=== PATIENT | female | born 1985 | race Caucasian/White ===

== ENCOUNTER 2019-05-04 08:58 | Emergency (ER) | payer MEDICAID ==
[~2019-05-04] VITALS: Ht 172.7 cm; Wt 127.0 kg
[2019-05-04 09:11] VITALS: BP_SYST 157
--- NOTE | 2019-05-04 09:13 | NUR ---
Placed in room 6 . Placed on ekg monitor, blood pressure machine and pulse oximeter. To gown for exam. Side rails up. Report given to Dre HER.
--- NOTE | 2019-05-04 09:19 | NUR ---
Patient is awake, alert, and oriented x4. Patient reports shap non-radiating chest pain 7/10 since last night. Patient reports feeling nauseous, denies vomiting and diarrhea.
--- NOTE | 2019-05-04 09:35 | NUR ---
ER Dr. Ring at bedside examining patient.
[2019-05-04] MEDS ORDERED: MAG HYDROX/AL HYDROX/SIMETH 30 ML, DICYCLOMINE HCL 20 MG, LIDOCAINE VISCOUS 2% 15ML (PO... PO ONE ×3 (09:45)
[2019-05-04 09:53] LABS: BASOPHILS # (AUTO) 0.1 K/uL (0.0-0.2); BASOPHILS % (AUTO) 0.8 % (0.0-2.0); EOSINOPHILS # (AUTO) 0.2 K/uL (0.0-0.4); HEMATOCRIT 37.5 % (36-48); HEMOGLOBIN 12.2 g/dL (12.0-16.0); LYMPHOCYTES # (AUTO) 1.3 K/uL (1.0-5.5); LYMPHOCYTES % (AUTO) 15.9 % (20.5-51.5); MEAN CORPUSCULAR HEMOGLOBIN 25 pg (27-31); MEAN CORPUSCULAR HGB CONC 33 % (32-36); MEAN CORPUSCULAR VOLUME 76 fL (79.0-98.0); MONOCYTES # (AUTO) 0.3 K/uL (0.0-1.0); MONOCYTES % (AUTO) 3.3 % (1.7-9.3); NEUTROPHILS # (AUTO) 6.1 K/uL (1.8-7.7); PLATELET COUNT (AUTO) 176 K/uL (130-430); RED BLOOD CELL COUNT(AUTO) 4.96 MIL/uL (4.2-6.2); RED CELL DISTRIBUTION WIDTH 16.4 % (9.0-15.0); WHITE BLOOD COUNT (AUTO) 7.9 K/uL (4.8-10.8)
[2019-05-04 09:55] LABS: BILIRUBIN,URINE NEGATIVE (NEGATIVE); BLOOD, URINE 2+ (NEGATIVE); CLARITY/URINE CLEAR (CLEAR); COLOR,URINE YELLOW (YELLOW); GLUCOSE,URINE NEGATIVE (NEGATIVE); KETONES,URINE NEGATIVE (NEGATIVE); LEUKOCYTE ESTERASE ,URINE NEGATIVE (NEGATIVE); NITRITE, URINE NEGATIVE (NEGATIVE); PH,URINE 5.5 (5.0-8.0); PROTEIN URINE TRACE (NEGATIVE); UROBILINOGEN,URINE 0.2 (0.2-1.0)
[2019-05-04 10:06] LABS: CREATININE 0.72 mg/dL (0.55-1.30); POTASSIUM 3.6 mmol/L (3.5-5.1)
[2019-05-04 10:07] LABS: PROTHROMBIN TIME 9.9 SECS (9.5-12.5)
[2019-05-04 10:10] LABS: ALBUMIN 3.5 g/dL (3.4-4.8); TOTAL BILIRUBIN 0.3 mg/dL (0.0-1.0)
[2019-05-04 10:31] LABS: BACTERIA,URINE FEW /HPF (None Seen); MUCUS,URINE 1+ /LPF (None Seen); RBC,URINE 0-3 /HPF (0-3); WBC,URINE 0-3 /HPF (0-3)
--- NOTE | 2019-05-04 10:50 | NUR ---
Patient given written and verbal discharge instructions and verbalizes understanding. ER MD discussed with patient the results and treatment provided. Patient in stable condition. ID arm band removed. IV catheter removed intact and dressing applied, no active bleeding. Rx of motrin given. Patient educated on pain management and to follow up with PMD. Pain Scale 0/10. Opportunity for questions provided and answered. Medication side effect fact sheet provided.
[2019-05-04 10:51] VITALS: BP_SYST 111
== END 2019-05-04 10:51 | disposition home or self-care (01) ==
LOC: SED 08:58
DX: R07.89 Other chest pain (principal); Z90.49 Acquired absence of other specified parts of digestive tract; Z86.79 Personal history of other diseases of the circulatory system; Z91.041 Radiographic dye allergy status
CPT/HCPCS: 36415; 71045; 80053; 81000; 83880; 84484; 84702; 85025; 85610; 99284; J2001

== ENCOUNTER 2019-05-09 19:17 | Inpatient (IN) | payer MEDICAID ==
[~2019-05-09] VITALS: Ht 172.7 cm; Wt 132.0 kg
[2019-05-09 19:28] VITALS: BP_SYST 144
--- NOTE | 2019-05-09 19:28 | NUR ---
Patient to ER bed 06 to gown for evaluation. Side rails up. Report given to Luann HER.
--- NOTE | 2019-05-09 19:29 | NUR ---
Patient came into ED after coming 2 days ago to the ER. Patient was diagnosed with pnumonia and was given a prescription of doxycicline. pt states that she vomits within an hour of taking the medication everytime. Pt states that the vomiting does not persist, its only after taking the medication. Patient reports that she has lingering nausea. Denies diarrhea. Pt is still having symptoms from the pnumonia, including coughing, headache, and sob when coughing. Pt A&Ox4. will continue to monitor.
--- NOTE | 2019-05-09 19:37 | NUR ---
ER Dr. Vicente at bedside examining patient.
[2019-05-09] MEDS ORDERED: NACL 0.9% 1,000 ML IV ONE (19:50)
[2019-05-09] MEDS ORDERED: ONDANSETRON HCL 4 MG/2 ML VIAL IVP ONE (20:00)
[2019-05-09 20:08] LABS: HEMOGLOBIN 10.8 g/dL (12.0-16.0); PLATELET COUNT (AUTO) 200 K/uL (130-430); RED CELL DISTRIBUTION WIDTH 16.7 % (9.0-15.0)
[2019-05-09 20:20] LABS: BILIRUBIN,URINE 1+ (NEGATIVE); CLARITY/URINE CLEAR (CLEAR); COLOR,URINE YELLOW (YELLOW); GLUCOSE,URINE NEGATIVE (NEGATIVE); KETONES,URINE NEGATIVE (NEGATIVE); LEUKOCYTE ESTERASE ,URINE NEGATIVE (NEGATIVE); NITRITE, URINE NEGATIVE (NEGATIVE); PROTEIN URINE TRACE (NEGATIVE)
[2019-05-09 20:29] LABS: ALANINE AMINOTRANSFERASE 32 U/L (12-78); AMYLASE 26 U/L (0-100); ANION GAP 9 (5-15); ASPARTATE AMINOTRANSFERASE 16 U/L (10-37); BASOPHILS % (AUTO) 0.7 % (0.0-2.0); CHLORIDE 99 mmol/L (98-107); CREATININE 0.78 mg/dL (0.55-1.30); EOSINOPHILS # (AUTO) 0.1 K/uL (0.0-0.4); EOSINOPHILS % (AUTO) 1.7 % (0.0-4.0); GLUCOSE 111 mg/dL (70-99); HEMATOCRIT 33.7 % (36-48); LIPASE 92 U/L (73-393); LYMPHOCYTES # (AUTO) 1.3 K/uL (1.0-5.5); MEAN CORPUSCULAR HEMOGLOBIN 24 pg (27-31); MEAN CORPUSCULAR HGB CONC 32 % (32-36); MEAN CORPUSCULAR VOLUME 76 fL (79.0-98.0); MONOCYTES # (AUTO) 0.4 K/uL (0.0-1.0); MONOCYTES % (AUTO) 5.4 % (1.7-9.3); NEUTROPHILS # (AUTO) 5.3 K/uL (1.8-7.7); NEUTROPHILS % (AUTO) 74.2 % (40.0-70.0); POTASSIUM 3.6 mmol/L (3.5-5.1); RED BLOOD CELL COUNT(AUTO) 4.47 MIL/uL (4.2-6.2); SODIUM SERUM 136 mmol/L (136-145); TOTAL BILIRUBIN 0.7 mg/dL (0.0-1.0); UREA NITROGEN, BLOOD 10 mg/dL (8-21); WHITE BLOOD COUNT (AUTO) 7.1 K/uL (4.8-10.8)
[2019-05-09 20:34] LABS: BLOOD, URINE TRACE (NEGATIVE)
--- NOTE | 2019-05-09 20:45 | NUR ---
Medication reconciliation completed with information provided by PATIENT. Any prior medication reconciliation on file was reviewed and corrected.
[2019-05-09 20:52] LABS: PROTHROMBIN TIME 10.2 SECS (9.5-12.5)
[2019-05-09] MEDS ORDERED: VENL75CA PO (20:54)
--- NOTE | 2019-05-09 21:25 | NUR ---
Patient's D-Dimer returned Elevated. Dr. Vicente to order CTA Chest. Chest Xray Cancelled.
[2019-05-09 21:28] LABS: BACTERIA,URINE FEW /HPF (None Seen); MUCUS,URINE 3+ /LPF (None Seen); RBC,URINE 0-3 /HPF (0-3); WBC,URINE 0-3 /HPF (0-3)
--- NOTE | 2019-05-09 21:32 | NUR ---
Patient is allergic to IV Iodine. Reports that it causes hives. Requesting Benadryl prior to CTA. Dr. Vicente to cancel CTA and order VQ Scan.
--- NOTE | 2019-05-09 21:37 | NUR ---
Aria mota in ED - 05/10/19 at 0107 by [email or web address] Patient's D-Dimer returned Elevated. Dr. Vicente to order CTA Chest.
--- NOTE | 2019-05-09 22:12 | NUR ---
Patient pending possible admission for Elevated D-Dimer. Awaiting Dr. Nix's call back.
--- NOTE | 2019-05-09 22:15 | NUR ---
Requesting Chest Xray for patient from MD for patient's cough. No order received from MD.
--- NOTE | 2019-05-09 22:56 | NUR ---
Dr. Nix called for admission. Dr. Nix refused admission would like patient to have VQ scan in the ED.
--- NOTE | 2019-05-09 23:45 | NUR ---
Patient is resting comfortably in bed. Friend is at bedside.
--- NOTE | 2019-05-10 00:32 | NUR ---
Patient updated on admission status. Informed that she will receive VQ Scan in ED. Patient resting comfortably in bed. Voiced no complaints.
--- NOTE | 2019-05-10 00:55 | NUR ---
Patient is sitting comfortably in bed. No s/s of distress.
--- NOTE | 2019-05-10 02:46 | NUR ---
Patient resting quietly. No acute distress noted. Chest rise and fall noted. Vital signs within normal range.
--- NOTE | 2019-05-10 02:58 | NUR ---
report given to TAINA Beasley for continuation of care.
--- NOTE | 2019-05-10 03:00 | NUR ---
PT resting comfortably in bed. No signs of acute distress. Will cont. to monitor.
--- NOTE | 2019-05-10 04:00 | NUR ---
PT resting comfortably in bed. No signs of acute distress. Will cont. to monitor.
--- NOTE | 2019-05-10 05:43 | NUR ---
Pt went to VQ scan per MD Dr. Nix order. Tolerated well. Will cont. to monitor.
--- NOTE | 2019-05-10 06:34 | NUR ---
PT returned from VQ scan via wheelchair. Tolerated well. Will cont. to monitor.
[2019-05-10] MEDS ORDERED: cefTRIAXone 1 GM IVPB PREMIX 50 ML IV ONE (07:15)
[2019-05-10] MEDS ORDERED: MORPHINE 4 MG/ML INJ. SYRINGE IVP ONE (07:15)
--- NOTE | 2019-05-10 07:20 | NUR ---
Pt received from night RN using SBAR. Pt resting in bed with eyes open. Pt connected to the in room monitor. No signs of acute distress at this time.
--- NOTE | 2019-05-10 08:30 | NUR ---
ER Dr. Gar at bedside examining patient.
[2019-05-10] MEDS ORDERED: DIPHENHYDRAMINE INJ 50 MG/ML VIAL IVP ONE (09:00)
[2019-05-10] MEDS ORDERED: IOHEXOL 350 mgI/mL, 150 ML INFUS..BTL IV ONE (09:17)
--- NOTE | 2019-05-10 10:09 | NUR ---
Pt denies any allergic reaction to CT with contrast. Denies any hives or itchiness. Benadryl given, prior to exam, pt is tolerating.
[2019-05-10] MEDS ORDERED: VENL37.510 PO (10:15)
--- NOTE | 2019-05-10 10:24 | NUR ---
Report Telephone report given to Arron. Med rec, belongings list, code status and summary report printed.
--- NOTE | 2019-05-10 11:00 | NUR ---
ADMISSION NOTE Received patient from ER via luisa, received report from Jennifer HER. Patient admitted with diagnosis of PNA. Patient oriented to hospital routine, call light, toileting and safety-patient verbalized understanding.
--- NOTE | 2019-05-10 11:04 | NUR ---
ID consult called: for Dr. Yousif, regarding pna, ordered by Suha Mendoza, spoke with Amaya.
[2019-05-10 11:06] VITALS: BP_SYST 103
--- NOTE | 2019-05-10 11:36 | NUR ---
Dr Jarquin made aware of the consult.
--- NOTE | 2019-05-10 12:19 | NUR ---
seen by dr spence
[2019-05-10] MEDS: cefTRIAXone 1 GM in D5W 50 ML IV SCH ×2 (12:29→12:41)
[2019-05-10] MEDS ORDERED: cefTRIAXone 1 GM IVPB PREMIX 50 ML IV SCH (12:30)
[2019-05-10] MEDS ORDERED: HYDROcodone/ACETAMIN 10-325 MG TAB PO PRN (12:30)
[2019-05-10] MEDS ORDERED: LORazepam 2 MG/ML VIAL IVP PRN (12:30)
[2019-05-10] MEDS ORDERED: ACETAMINOPHEN 325 MG TABLET PO PRN (12:30)
[2019-05-10] MEDS ORDERED: HYDROcodone/ACETAMIN 5-325 MG TAB (NORCO/ VICODIN) PO PRN (12:30)
[2019-05-10] MEDS ORDERED: ONDANSETRON HCL 4 MG/2 ML VIAL IVP PRN (12:30)
--- NOTE | 2019-05-10 12:35 | NUR ---
Hematology consult called: for Dr. Marx, regarding elevated D dimer, ordered by Suha Mendoza, spoke with Yarely.
[2019-05-10] MEDS: AZITHROMYCIN 500 MG in NS 250 ML IV SCH (12:50)
--- NOTE | 2019-05-10 13:00 | NUR ---
PATIENT CRYING DUE TO NOBODY WILL TAKE CARE OF THE KIDS AT HOME.
[2019-05-10] MEDS ORDERED: NORMAL SALINE 5 ML DISP.SYRIN IVF SCH (14:00)
[2019-05-10] MEDS: NORMAL SALINE 5 ML DISP.SYRIN IVF SCH ×2 (14:00→20:53)
--- NOTE | 2019-05-10 14:30 | NUR ---
STILL CRYING AT THIS TIME. MADE COMFORTABLE.
--- NOTE | 2019-05-10 15:00 | NUR ---
WENT TO THE BATHROOM TWICE
[2019-05-10 15:25] VITALS: BP_SYST 113
--- NOTE | 2019-05-10 16:00 | NUR ---
WENT TO SLEEP. BOTH EYES CLOSED.
--- NOTE | 2019-05-10 18:06 | NUR ---
PATIENT EATING DINNER. NO COMPLAINED MADE SO FAR.
--- NOTE | 2019-05-10 18:43 | NUR ---
patient stable. no complained made so far.
--- NOTE | 2019-05-10 18:44 | NUR ---
closing notes: patient watching tv. breathing even and unlabored. abdomen soft and non distended. still has iv access on the left ac #18. saline lock. all needs are met and attended. maintained fall and safety measures. bed in low position, locked and alarmed. call lights within reach. endorsed to incoming nurse.
--- NOTE | 2019-05-10 19:35 | NUR ---
Initial Note Received patient asleep but arousable. Awake, alert and oriented. No SOB noted. Denies any pain or n/v at this time. VS taken and is stable. Saline lock. Skin intact and no peripheral edema noted. Ambulates to the bathroom and back in bed with steady gait. Care and monitoring will be provided per protocol. Call light within reach. Bed alarm off per patient's request. Bed at lowest position at all times. Needs attended. Repositions self. Kept warm and comfortable.
[2019-05-10 20:00] VITALS: BP_SYST 99
--- NOTE | 2019-05-10 20:50 | NUR ---
RN Note Visitor at the bedside. Patient on her phone at this time. No meds scheduled tonight. Medicated for anxiety/insomnia per patient's request. Will continue to monitor. Advised to use call light if she feels weak or dizzy. Call light within reach. Needs attended.
--- NOTE | 2019-05-10 22:00 | NUR ---
RN Note Patient awake and alert, watching TV. No complaints at this time. Needs attended.
[2019-05-11] VITALS: BP_SYST 90
--- NOTE | 2019-05-11 | NUR ---
RN Note Patient sleeping at this time. No SOB or grimacing noted.
--- NOTE | 2019-05-11 03:00 | NUR ---
RN Note Asleep, moves occasionally. No distress noted.
[2019-05-11] MEDS: NORMAL SALINE 5 ML DISP.SYRIN IVF SCH ×2 (05:40→13:14)
[2019-05-11 05:43] LABS: BASOPHILS % (AUTO) 0.6 % (0.0-2.0); EOSINOPHILS # (AUTO) 0.2 K/uL (0.0-0.4); EOSINOPHILS % (AUTO) 4.3 % (0.0-4.0); HEMATOCRIT 28.7 % (36-48); HEMOGLOBIN 9.4 g/dL (12.0-16.0); LYMPHOCYTES # (AUTO) 1.1 K/uL (1.0-5.5); LYMPHOCYTES % (AUTO) 19.3 % (20.5-51.5); MEAN CORPUSCULAR HEMOGLOBIN 25 pg (27-31); MEAN CORPUSCULAR HGB CONC 33 % (32-36); MEAN CORPUSCULAR VOLUME 75 fL (79.0-98.0); MONOCYTES # (AUTO) 0.3 K/uL (0.0-1.0); MONOCYTES % (AUTO) 6.2 % (1.7-9.3); NEUTROPHILS # (AUTO) 3.8 K/uL (1.8-7.7); NEUTROPHILS % (AUTO) 69.6 % (40.0-70.0); PLATELET COUNT (AUTO) 160 K/uL (130-430); RED BLOOD CELL COUNT(AUTO) 3.81 MIL/uL (4.2-6.2); RED CELL DISTRIBUTION WIDTH 16.6 % (9.0-15.0); WHITE BLOOD COUNT (AUTO) 5.5 K/uL (4.8-10.8)
[2019-05-11 06:00] LABS: CALCIUM 8.8 mg/dL (8.4-11.0); CREATININE 0.72 mg/dL (0.55-1.30); POTASSIUM 3.4 mmol/L (3.5-5.1)
--- NOTE | 2019-05-11 06:09 | NUR ---
End Note Afebrile. VS stable. No complain of pain, SOB or n/v throughout the night. Medicated for insomnia/restlessness once all night. Ambulates well with steady gait. Needs sputum specimen. Saline lock flushed as scheduled. AM labs today. Will endorse to AM RN re IV antibiotic in the fridge that supposed to be given at 0800 today but not scheduled in [facility]. Will leave message to the pharmacy. Care and monitoring provided per protocol. Call light within reach. Bed alarm off per patient's request. Bed at lowest position at all times. Needs attended. Kept warm and comfortable.
[2019-05-11 06:50] LABS: C-REACTIVE PROTEIN QUANT 12.8 mg/dL (0-0.5)
--- NOTE | 2019-05-11 07:36 | NUR ---
Opening Note received bedside SBAR report from assembler 1st shift RN, patient resting in bed, respirations even and unlabored on room air, no acute distress noted, educated patient on use of call light and asked to call for assistance, patient verbalized understanding, call light in reach, educated patient on use of bed alarm for patient safety, refusing bed alarm, bed in low and locked position.
[2019-05-11 08:00] VITALS: BP_SYST 100
[2019-05-11] MEDS ORDERED: cefTRIAXone 1 GM in D5W 50 ML IV SCH (08:00)
[2019-05-11 08:07] LABS: ERYTHROCYTE SEDIMENTATION RATE 91 MM/HR (0-20)
[2019-05-11] MEDS ORDERED: Effexor 37.5 MG TAB PO SCH (09:00)
--- NOTE | 2019-05-11 09:44 | NUR ---
RN Rounds patient resting in bed, patient denies any pain or shortness of breath, no acute distress noted, no additional needs at this time.
[2019-05-11] MEDS ORDERED: ENOXAPARIN SODIUM 40 MG/0.4 ML SYRINGE SUBCUT ONE (10:30)
--- NOTE | 2019-05-11 11:42 | NUR ---
Physician Rounds Dr. Jarquin at bedside examining patient.
[2019-05-11 12:00] VITALS: BP_SYST 133
[2019-05-11] MEDS: AZITHROMYCIN 500 MG in NS 250 ML IV SCH (13:14)
--- NOTE | 2019-05-11 14:18 | NUR ---
RN Rounds patient resting in bed, no acute distress noted, respirations even and unlabored on room air, patient denies any pain or shortness of breath, no acute distress noted.
--- NOTE | 2019-05-11 15:26 | NUR ---
AMA Patient does not wish to proceed with medical care recommended by Dr. Angela Orozco, patient given information related to possible complications, up to and including , which could occur as a result of leaving hospital at this time, patient verbalizes understanding of risks involved leaving against medical advice, patient has signed AMA form, IV catheter removed, catheter intact, no bleeding, hospital ID band removed, all belongings sent with patient, patient refusing wheelchair to parking lot, security notified of patient leaving AM. Addendum: 05/11/19 at 1928 by Francisca Britton RN paged Dr. Angela Orozco to notify him that patient left AMA, awaiting call back.
[2019-05-12] MEDS ORDERED: ENOXAPARIN SODIUM 40 MG/0.4 ML SYRINGE SUBCUT SCH (09:00)
[2019-05-12 19:06] LABS: MYCOPLASMA PNEUMONIAE IgM <770 U/mL (0-769)
== END 2019-05-11 15:26 | disposition left against medical advice (07) | DRG 139 ==
LOC: SED 19:17 → SMU 05-10 10:08
PROVIDERS: ADMIT Preventive Medicine Preventive Medicine/Occupational Environmental Medicine; ATTEND Preventive Medicine Preventive Medicine/Occupational Environmental Medicine
DX: J18.9 Pneumonia, unspecified organism (principal); I47.1 Supraventricular tachycardia; D64.9 Anemia, unspecified; F32.9 Major depressive disorder, single episode, unspecified; D50.9 Iron deficiency anemia, unspecified; E03.9 Hypothyroidism, unspecified; E66.9 Obesity, unspecified; F41.9 Anxiety disorder, unspecified; R07.89 Other chest pain; R73.9 Hyperglycemia, unspecified; Z98.84 Bariatric surgery status; Z98.891 History of uterine scar from previous surgery; Z91.041 Radiographic dye allergy status; Z79.899 Other long term (current) drug therapy; Z68.44 Body mass index [BMI] 60.0-69.9, adult
CPT/HCPCS: 36415; 71045; 71275; 78579; 78580-TC; 80048; 80053; 81000-TC; 82150-TC; 82550-TC; 83605; 83690-TC; 83880; 84484; 85025; 85379; 85610-TC; 85651-TC; 85730-TC; 86140; 86635; 86738; 87040-TC; 87449; 93005; 96361; 96365; 96375; 99285; A9539; A9540; J0456; J0696; J1200; J1650; J2060; J2270; J2405; J7030; J7050; J7060; Q9967

== ENCOUNTER 2019-05-16 18:48 | Emergency (ER) | payer MEDICAID ==
[~2019-05-16] VITALS: Ht 172.7 cm; Wt 128.4 kg
[~2019-05-16 18:48] MED LIST: VENL37.510 PO; VENL75CA PO
[2019-05-16 18:53] VITALS: BP_SYST 146
--- NOTE | 2019-05-16 19:00 | NUR ---
Patient to ER bed 06 to gown for evaluation. Side rails up.
--- NOTE | 2019-05-16 19:02 | NUR ---
Patient AOx4, ambulatory, presents to ER with complaint of non-productive cough x9 days. Patient states she was admitted to [facility] on 05/07/19 for PNA and discharged on 05/11/19. Patient states she has been taking the prescribed Doxycicline x4 days now and is here for a follow-up visit since she does not have a PCP. No other symptoms or complaints. Patient states, "I feel better but the cough is still there".
--- NOTE | 2019-05-16 19:05 | NUR ---
YURI Brennan at bedside for medical evaluation.
[2019-05-16 20:30] VITALS: BP_SYST 138
--- NOTE | 2019-05-16 20:30 | NUR ---
Patient given written and verbal discharge instructions and verbalizes understanding. ER MD discussed with patient the results and treatment provided. Patient in stable condition. ID arm band removed. Rx of Promethazine with Codeine, Tylenol ES, Doxycycline, and Albuterol Ihn given. Patient educated on pain management and to follow up with PMD. Pain Scale 0/10. Opportunity for questions provided and answered. Medication side effect fact sheet provided.
== END 2019-05-16 20:30 | disposition home or self-care (01) ==
LOC: SED 18:48
DX: J18.9 Pneumonia, unspecified organism (principal); R03.0 Elevated blood-pressure reading, without diagnosis of hypertension; F32.9 Major depressive disorder, single episode, unspecified; Z90.49 Acquired absence of other specified parts of digestive tract; Z86.79 Personal history of other diseases of the circulatory system; Z79.899 Other long term (current) drug therapy; Z91.041 Radiographic dye allergy status
CPT/HCPCS: 71046-TC; 81025; 99283

== ENCOUNTER 2019-09-06 16:46 | Emergency (ER) | payer BC, MEDICAID ==
[~2019-09-06] VITALS: Ht 172.7 cm; Wt 128.4 kg
[2019-09-06 16:53] VITALS: BP_SYST 158
[2019-09-06 17:23] LABS: BILIRUBIN,URINE 1+ (NEGATIVE); BLOOD, URINE NEGATIVE (NEGATIVE); CLARITY/URINE CLEAR (CLEAR); COLOR,URINE YELLOW (YELLOW); GLUCOSE,URINE NEGATIVE (NEGATIVE); KETONES,URINE NEGATIVE (NEGATIVE); LEUKOCYTE ESTERASE ,URINE NEGATIVE (NEGATIVE); NITRITE, URINE NEGATIVE (NEGATIVE); PROTEIN URINE NEGATIVE (NEGATIVE); UROBILINOGEN,URINE 0.2 (0.2-1.0)
[2019-09-06] MEDS: KETOROLAC TROMETHAMINE 30 MG VIAL IM ONE (18:23)
[2019-09-06 19:11] VITALS: BP_SYST 142
== END 2019-09-06 19:07 | disposition home or self-care (01) ==
LOC: SED 16:46
DX: S39.012A Strain of muscle, fascia and tendon of lower back, initial encounter (principal); F32.9 Major depressive disorder, single episode, unspecified; Z90.49 Acquired absence of other specified parts of digestive tract; Z91.041 Radiographic dye allergy status; Z79.899 Other long term (current) drug therapy; X58.XXXA Exposure to other specified factors, initial encounter; Y93.89 Activity, other specified; Y92.89 Other specified places as the place of occurrence of the external cause; Y99.8 Other external cause status
CPT/HCPCS: 71045; 74021; 81003; 81025; 96372; 99284; J1885